=== PATIENT | female | born 1955 | race Caucasian/White ===

== ENCOUNTER → 2017-05-13 | Outpatient (CLI) | payer BC ==
--- NOTE | 2017-05-13 16:07 | RAD ---
EXAM DESCRIPTION: Lumbar Spine 3 Views CLINICAL HISTORY: LUMBAR NEURITIS COMPARISON: None Available. TECHNIQUE: AP/lateral/coned-down lateral FINDINGS: Mild rightward scoliotic curvature of the lower thoracic and lumbar spine is seen. On lateral view, slight retrolisthesis of L4 on L5 and L5 on S1 is noted thought to be degenerative. Frontal view shows intact pedicles and transverse processes. Sacrum appears intact with normal SI joints. Bones appear mildly osteopenic. Lateral view shows no vertebral compressions. Disc height mildly narrowed at L4-5 and L5-S1 with anterior spurring. No focal destructive lesion. IMPRESSION: Mild degenerative changes in the lower lumbar spine as described with mild rightward scoliosis. Electronically signed by: Salomón Casillas MD 05/13/2017 4:06 PM [facility]
== END ==
LOC: RAD 14:02
PROVIDERS: ATTEND Chiropractor
DX: M54.16 Radiculopathy, lumbar region (principal)

== ENCOUNTER → 2017-05-17 | Outpatient (CLI) | payer BC ==
--- NOTE | 2017-05-17 10:19 | MRI ---
MRI OF LUMBAR SPINE WITHOUT INTRAVENOUS CONTRAST HISTORY: Right hip pain COMPARISON: Radiographs of lumbar spine from May 13, 2017 TECHNIQUE: Routine MRI protocol for lumbar spine without intravenous contrast administration. FINDINGS: Maintained bony alignment in lumbar spine. Vertebral heights are maintained without compression injury. No focal spondylolysis nor discernible spondylolisthesis. Marrow signal characteristics are mildly heterogeneous without concerning edema to indicate focal injury, inflammation or marrow infiltration. Conus terminates at superior L1 level. Cauda equina nerve roots are unremarkable in appearance without abnormal tethering. No paraspinal soft tissue abnormality is identified in the lumbar region. At T12-L1, disc height is maintained. Central canal and neuroforamen bilaterally are patent. At L1-2, disc height is maintained. Central canal and neuroforamen bilaterally are patent. At L2-3, disc height is maintained. Minimal annular disc bulges associated with posterior disc protrusion or extrusion which probably but minimally efface the ventral thecal margin. There is less than 20% central canal stenosis. Facet arthropathy contributes to less than 20% neural foraminal stenosis bilaterally, without impact on either exiting nerve root. At L3-4, disc height is maintained. Central canal is patent. Facet arthropathy contributes to less than 20% neural foraminal stenosis bilaterally without impact on either exiting nerve root. At L4-5, disc height is reduced by 25%. Tiny focus of signal abnormality along the posteriorly extruded discs consistent with annulus fibrosis tear. Posterior disc extrusion broadly minimally flatten the ventral thecal margin and contribute to less than 20% central canal stenosis. Facet arthropathy contributes to 30% neural foraminal stenosis bilaterally. At L5-S1, disc height is maintained. Posterior disc protrusion does not abut the ventral thecal margin. Central canal and neuroforamen bilaterally are patent. IMPRESSION: 1. No acute bony injury identified in lumbar spine 2. Minimal to mild degenerative disc disease in several levels, with a tiny focus of annulus fibrosis tear along the posterior disc margin at L4-5 level. 3. No significant central canal stenosis in the lumbar region. 4. 30% or less neuroforaminal stenosis in several levels secondary to facet arthropathy Electronically signed by: Marc Galvez MD 05/17/2017 10:18 AM ENDOSCOPY REGISTERED NURSE
== END ==
LOC: MRI 08:42
PROVIDERS: ATTEND Nurse Practitioner Acute Care
DX: M25.559 Pain in unspecified hip (principal)

== ENCOUNTER → 2017-05-23 | Outpatient (CLI) | payer BC | LOC: GMAB 14:28 | PROVIDERS: ATTEND Family Medicine | DX: Z00.00 Encounter for general adult medical examination without abnormal findings (principal) ==

== ENCOUNTER → 2017-05-28 | Outpatient (CLI) | payer BC ==
--- NOTE | 2017-05-28 14:19 | CT ---
CT OF CHEST WITHOUT INTRAVENOUS CONTRAST HISTORY:COUGH COMPARISON: None TECHNIQUE: Routine chest CT protocol without intravenous contrast administration. Image reformations performed in coronal and sagittal planes. Imaging was performed with automated exposure protocol to minimize radiation dose. FINDINGS: Lungs are well aerated bilaterally. Mild centrilobular emphysematous changes in both upper lungs. Highly spiculated soft tissue density or mass is identified in left lower lobe measuring 4.3 x 3.8 cm in orthogonal span. A few small ill-defined nodules also situated nearby. No other concerning mass in remainder of either lung. No pneumothorax, airspace consolidation, bronchiectasis nor pleural effusion in either lung. Central tracheobronchial tree is unremarkably patent. Several small mediastinal lymph nodes incidentally noted. Cardiac dimensions are within normal limits. No pericardial effusion. Thoracic aorta is normal in caliber without aneurysmal dilatation. Thoracic bony structures are intact with unremarkable alignment. Limited visualization of upper abdomen is unremarkable. IMPRESSION: 1. Large spiculated and highly concerning mass in left lower lobe of lung. Its appearance is less consistent with airspace disease. 2. No pathologic thoracic lymphadenopathy. Electronically signed by: Marc Galvez MD 05/28/2017 2:19 PM [facility]
== END ==
LOC: CT 10:57
PROVIDERS: ATTEND Family Medicine
DX: R05 Cough (principal)

== ENCOUNTER → 2017-06-06 | Outpatient (CLI) | payer BC ==
--- NOTE | 2017-06-07 08:38 | NM ---
EXAM DESCRIPTION: Bone Scan, 3Phase CLINICAL HISTORY: 62 years, Female, SOLITARY PULMONARY NODULE, pain in the left thigh, right lower extremity and right buttock RADIOPHARMACEUTICAL: 28.3 mCi technetium 99m MDP FINDINGS: 2.5 hours after IV administration of radiopharmaceutical, AP and PA images of the entire skeleton were obtained for whole body bone scan. Frontal view shows normal radionuclide activity in the upper extremities, thorax, calvarium and spine. Low position of the right kidney may be renal ptosis. There is increase activity in the region of the right SI joint on the AP and PA views. Findings would suggest unilateral sacroiliitis. CT or MRI of the pelvis may be helpful. Patient and x-ray of the pelvis May 29, 2017 which showed mild right SI joint sclerosis compared to the left. Intense increased activity is seen in the anteromedial mid left femur. Long linear eccentric lesion may indicate secondary involvement of the bone by an adjacent soft tissue lesion (saucerization). Primary subperiosteal bone lesion is possible. Differential considerations might include subperiosteal infection, osteoid osteoma or stress fracture. MRI of the thigh might be considered for further evaluation in addition to x-ray images of the left femur. IMPRESSION: Increased activity in the region of the right SI joint suggesting sacroiliitis. Eccentric increased activity in the medial mid left femur. Correlate with x-ray and MRI findings. Electronically signed by: Salomón Casillas MD 06/07/2017 8:37 AM CDT
== END ==
LOC: NM 09:27
PROVIDERS: ATTEND Family Medicine
DX: R91.1 Solitary pulmonary nodule (principal); R05 Cough; M54.31 Sciatica, right side
CPT/HCPCS: 78315; A9503

== ENCOUNTER → 2017-06-10 | Outpatient (CLI) | payer BC ==
--- NOTE | 2017-06-11 08:40 | MRI ---
EXAM DESCRIPTION: MRI left femur CLINICAL HISTORY: Mid thigh pain radiating medially. Palpable mass on the top of the thigh. Abnormal bone scan. Emphysema with lung mass consistent with lung carcinoma on recent chest CT COMPARISON: CT chest 05/28/2017. Bone scan 06/06/2017 TECHNIQUE: Multiplanar, multisequence MR images of the left thigh/femur FINDINGS: Neoplastic bone lesion involving the medial left femoral diaphysis with the epicenter cortical/subperiosteal extending into the soft tissues primarily. Ovoid mass lesion 4.7 cm craniocaudal by 3.6 cm anteroposterior by 2.7 cm transverse. The lesion involves the cortex, medial half of the femoral diaphysis cortex with a scalloped morphology and associated surrounding periostitis. Region of medullary marrow edema in the diaphysis spanning about 7.2 cm craniocaudal. Extensive surrounding soft tissue edema mostly in the quadriceps and adductor muscles immediately surrounding the tumor There are no other bony lesions included in the [id number] throughout the femur or in the pelvis There are no other soft tissue mass lesions or adenopathy IMPRESSION: Neoplastic mass lesion involving the medial left femoral diaphysis, cortical/subperiosteal epicenter. This is likely a metastatic lesion in light of the patient's known left lower lobe spiculated lung lesion consistent with carcinoma. There are no other lesions seen on bone scintigraphy or included in the [id number]. Primary osseous neoplasm is another possibility, although considered less likely. Electronically signed by: Ace Solares MD 06/11/2017 8:39 AM CDT
== END ==
LOC: MRI 15:04
PROVIDERS: ATTEND Family Medicine
DX: D49.2 Neoplasm of unspecified behavior of bone, soft tissue, and skin (principal)

== ENCOUNTER → 2017-06-11 | Outpatient (CLI) | payer BC ==
--- NOTE | 2017-06-11 17:00 | CT ---
EXAM DESCRIPTION: Abdomen/Pelvis w/wo Contrast: Computed Tomography. CLINICAL HISTORY: D49.2. Lung mass. Mass in the left femur. COMPARISON: MRI scan of the left femur 06/10/2017. Total body bone scan 06/06/2017. CT scan of the chest without contrast 05/28/2017. TECHNIQUE: Spiral-axial scans at 5.0 mm intervals through the abdomen and pelvis before and after standard dose nonionic IV contrast. No oral contrast. Coronal and sagittal 2.0 mm reconstructions. 5 mm Delayed helical-axial scans, liver through the pubic symphysis. No adverse reactions. Total Exam DLP 678.96 mGy - cm. This exam was performed according to our departmental CT dose-optimization program which includes automated exposure control, adjustment of the mA and/or kV according to patient size and/or use of iterative reconstruction technique; to reduce radiation dose to as low as reasonably achievable (ALARA). FINDINGS: Lung bases and pleura: Scarring bilateral bases and centrilobular small blebs. Liver, Stomach, Spleen, Adrenal Glands: 5 mm helical subcapsular anterior right hepatic nonenhancing object appears the same on all 3 scans. Too small to determine Hounsfield units. Calcifications posterior spleen. Stomach and adrenal glands unremarkable. Pancreas, Gallbladder, Ducts: Gallbladder visualized. No definite dilation but pancreatic duct visualized. Pancreatic head slightly prominent but could be part of the duodenum. Body and tail are unremarkable. Kidneys and Ureters: Negative. Mesentery: Decreased due to patient body habitus. No free air or free fluid. Aorta: Moderate atherosclerotic calcification minimal distal luminal narrowing. Small Bowel: Contains gas and fluid with small air-fluid levels and minimal distention distally. Terminal Ileum/Cecum: Normal caliber of the TI. Cecum distended with fecal matter. Appendix abutting the posterior lateral cecum and normal caliber. Normal density of the surrounding fat. Colon: Redundancy of the sigmoid colon with diverticula. Minimal gaseous distention of the proximal and mid colon but no obstruction. Pelvic Organs: No radiodense stones in the urinary bladder. Ossifications in the pelvis. Uterus in normal position and unremarkable. Minimal fluid in the cul-de-sac. Spine and Bony Pelvis: Lytic lesion measuring 3.6 cm in the craniocaudal axis, in the right iliac wing, with soft tissue component and mass effect on the right gluteus muscles. The capsule of the mass shows minimal enhancement. There appears to be invasion of the right SI joint by the lesion with erosion through the iliac wall. Transverse measurement of the mass is 3.1 x 2.9 cm. Dextroscoliosis of the lumbar spine with bulging L4-5 and L5-S1 discs. The remaining osseous structures included on the study shows no evidence of abnormal sclerosis or destruction. Abdominal Wall/Back Soft Tissues: Unremarkable. IMPRESSION: 1. Lytic lesion in the right iliac bone with soft tissue mass extending through the cortex and exhibiting mass effect on the right gluteus muscles. Lytic area measures 3.6 cm craniocaudally. There appears to be invasion of the right SI joint with erosion of the iliac subchondral bone. This is most likely a metastatic lesion. No other bony destructive or lytic lesions. 2. 5 mm subcapsular right hepatic lobe lesion appears the same on all 3 phases and may represent a small cyst. Too small to determine Hounsfield units. 3. Sigmoid diverticulosis with no evidence of complications. Electronically signed by: Blaise Marte MD 06/11/2017 4:59 PM CDT
== END ==
LOC: CT 14:31
PROVIDERS: ATTEND Family Medicine
DX: D49.2 Neoplasm of unspecified behavior of bone, soft tissue, and skin (principal); K57.30 Diverticulosis of large intestine without perforation or abscess without bleeding

== ENCOUNTER → 2017-10-04 | Outpatient (CLI) | payer BC ==
--- NOTE | 2017-10-04 17:14 | CT ---
EXAM DESCRIPTION: CT ABDOMEN AND PELVIS WITHOUT AND WITH CONTRAST CLINICAL HISTORY: C79.51 COMPARISON: CT abdomen and pelvis June 11, 2017, CT chest May 28, 2017 TECHNIQUE: CT of the abdomen and pelvis are performed prior to and during IV bolus administration of 100 mL of Isovue 300. Oral contrast media is administered as well. FINDINGS: CT abdomen The lung bases are clear of infiltrate. Liver is normal in size and parenchymal appearance on the precontrast images. Spleen, pancreas, and kidneys are unremarkable. No kidney stones. After IV contrast, repeat helical scanning through the upper abdomen shows thickened left adrenal gland which could be a mass measuring 2.4 x 2.1 cm. Myelolipoma is suspected with some fatty areas. This appears unchanged from previous study. Tiny cyst in the anterior liver near the junction of the right and left lobes 4 mm. This is unchanged compared to previous study. Otherwise normal enhancement of liver spleen and kidneys and pancreas. There is no lymphadenopathy, inflammation, or free fluid observed. CT pelvis Lytic bone lesion in the right ilium has an exophytic soft tissue component and measures 3.4 x 3 cm by cm. This enhances much less than on the previous study. This previously measured approximately 2.9 x 3.7 cm. This is evidently stable to slightly smaller. Tumor extends into the right SI joint and into the right buttock soft tissues. No definite change. Delayed images show positive enhancement of the urinary collecting systems bilaterally. No inflammation is seen around the cecum or terminal ileum or sigmoid colon. Appendix is not definitely seen. No stones are seen in the distal ureters or bladder. Normal pelvic small bowel loops. Postcontrast images show normal enhancement of the pelvic vessels. Uterus appears normal. IMPRESSION: Slightly decreased size of lytic lesion in the right ilium with markedly decreased enhancement compared to the previous study. These findings suggest improvement. Stable left adrenal lesion probably benign. This exam was performed according to our departmental dose-optimization program, which includes automated exposure control, adjustment of the mA and/or kV according to patient size and/or use of iterative reconstruction technique. Total DLP equals 789.89. Electronically signed by: Saolmón Casillas MD 10/04/2017 5:13 PM CDT
--- NOTE | 2017-10-05 05:59 | CT ---
EXAM DESCRIPTION: Chest w/Contrast CLINICAL HISTORY: 62 years, Female, C34.90, lung cancer, bone metastases COMPARISON: Previous CT of the chest from May 28, 2017 TECHNIQUE: Thin-section noncontrast axial CT images are obtained according to our protocol. Reconstructed MPR images are created and reviewed as well. Nonionic iodinated IV contrast was administered. FINDINGS: Lungs: Right apical pleural-parenchymal scarring is seen. Subpleural scarring is seen in the posterior apices bilaterally. Extensive centrilobular emphysematous changes are present in the lungs are hyperexpanded. There is a mass of the left lower lobe of the lung which measures 3.8 x 4.2 x 2.7 centimeters consistent with primary bronchogenic carcinoma. This involves the superior segment left lower lobe extending to the posterior aspect of the upper left major fissure. Previously this mass measured approximately 3.8 x 4.4 x 2.2 cm and appears essentially stable in size. There is tumor infiltration along the left lower lobe pulmonary artery. Normal enhancement of the aorta and pulmonary arteries. No aortic aneurysm or pulmonary embolism. Heart is prominent. Small amount of pericardial fluid is present. Bone window images show osteopenic appearance of the spine. No focal bony destructive lesion. Numerous small nodules in the lungs are present which appear to be new. These could be tiny metastases or new areas of granulomatous infection. Follow-up may be helpful. Small nodules are seen in the periphery of the upper lobes, along the right major fissure and in the peripheral lower lobes. Most are too small to accurately measure. There is a nodule in the right middle lobe lateral segment anteriorly which measures 5 mm. This appears to be new. Other nodules are in the 1 to 3 mm size range. Clustered 3 mm nodules are seen in the left lower lobe. Tiny metastases are thought most likely. Coronal and sagittal reformatted images confirm the findings. Mediastinum: Lymph nodes are normal in size. Normal vascular contours. Heart size is normal with no pericardial effusion. Chest wall/axilla: No mass or adenopathy. Breast tissue appears nodular. Correlate with mammographic and sonographic findings. Axillary lymph nodes are small. Lower neck/supraclavicular: No mass or adenopathy. Upper abdomen: See separate report for CT abdomen and pelvis. IMPRESSION: Spiculated mass in the superior segment left lower lobe essentially unchanged in size, consistent with primary bronchogenic carcinoma. Multiple small bilateral pulmonary nodules in the 1 to 5 mm size range consistent with metastases. This exam was performed according to our departmental dose-optimization program, which includes automated exposure control, adjustment of the mA and/or kV according to patient size and/or use of iterative reconstruction technique. Total DLP equals 789.89 mGycm. Electronically signed by: Salomón Casillas MD 10/05/2017 5:58 AM CDT
== END ==
LOC: CT 13:30
PROVIDERS: ATTEND Internal Medicine Hematology & Oncology
DX: C34.90 Malignant neoplasm of unspecified part of unspecified bronchus or lung (principal); C79.51 Secondary malignant neoplasm of bone

== ENCOUNTER → 2017-12-09 | Outpatient (CLI) | payer BC ==
--- NOTE | 2017-12-09 16:36 | CT ---
EXAM DESCRIPTION: Chest w/Contrast : Computed Tomography. CLINICAL HISTORY: MALIGNANT NEOPLASM OF LUNG. Follow-up. Taking chemotherapy. COMPARISON: CT scan of the chest 10/04/2017. TECHNIQUE: Spiral-axial scans at 5.0 x 5.0 mm intervals through the lungs and thorax without IV contrast. 2.5 mm lung algorithm axial reconstructions. Coronal and sagittal 2.0 mm Mm reconstructions. No adverse reactions. Total Exam DLP: 209.01 mGy-cm. This exam was performed according to our departmental dose-optimization program which includes automated exposure control, adjustment of the mA and/or kV according to patient size and/or use of iterative reconstruction technique; to reduce radiation dose to as low as reasonably achievable (ALARA). FINDINGS: Mass in the superior segment of the left lower lobe has decreased in size since the prior study. Measures 2.0 x 1.8 cm in the axial plane, and 1.1 cm craniocaudally. Prior dimensions were 3.7 x 2.8 cm in axial plane and 2.2 cm craniocaudal. Margins remain spiculated. There are also extensions to the nearby pleura. No calcification. Stable focal thickening posteriorly to the mass in the superior left major fissure. Bilateral apical pleural thickening more on the right than the left. Bilateral hyperinflation with diffuse small centrilobular type blebs more prevalent in the upper lung vargas than the lower lung vargas. Bohler in the base of the right upper lobe is stable. No new nodules infiltrates bilaterally. No pleural effusion or pneumothorax. Normal contrast enhancement thyroid gland. No soft tissue masses are enlarged lymph nodes in the mediastinum or fe. No soft tissue masses in the chest wall or axilla or base of the neck. No fluid or soft tissue mass in the subarticular diaphragmatic peritoneum. Prominence of the left adrenal gland is stable. Spondylosis at multiple levels of the midthoracic spine. Minimal levoscoliosis. No bone destruction or blastic lesions. No other significant osseous lesions. IMPRESSION: 1. Malignant lesion with spiculated margins in the superior segment of the left lower lobe abutting the major fissure has decreased significantly in size since the prior CT scan of the chest 10/04/2017. Bilateral air trapping and centrilobular emphysema is again noted. No new masses or infiltrates. Consider follow-up chest CT scan with and without IV contrast in 3 month interval. Electronically signed by: Blaise Marte MD 12/09/2017 4:34 PM CDT
== END ==
LOC: CT 14:00
PROVIDERS: ATTEND Internal Medicine Hematology & Oncology
DX: C34.90 Malignant neoplasm of unspecified part of unspecified bronchus or lung (principal)

== ENCOUNTER → 2017-12-11 | Outpatient (CLI) | payer BC ==
--- NOTE | 2017-12-11 12:24 | CT ---
EXAM DESCRIPTION: Head w/wo Contrast: Computed Tomography. CLINICAL HISTORY: Headache. JAW PAIN, recent dental procedure. Cancer left lung but responding to therapy. COMPARISON: CT scan of the maxillofacial bones without and with IV contrast on the same visit. TECHNIQUE: Spiral -axial scans through the head and brain at 2.5 mm intervals, without and with nonionic IV contrast. Coronal and sagittal 2.0 mm reconstructions. No adverse reactions. Total Exam DLP: 752.48 mGy-cm. This exam was performed according to our departmental CT dose-optimization program which includes automated exposure control, adjustment of the mA and/or kV according to patient size and/or use of iterative reconstruction technique; to reduce radiation dose to as low as reasonably achievable (ALARA). FINDINGS: A lobulated mass density, more dense than the jean matter, is visualized in the posterior right occipital lobe parasagittal location, abutting the posterior falx. Almost uniform enhancement in this mass, which measures 3.3 cm AP, 2 cm transverse, and approximately 2.3 cm craniocaudal. A cystic component anteriorly and laterally to the mass with minimal peripheral enhancement measures 2.6 x 2.2 cm. No hemorrhage. Low-density in the white matter representing vasogenic edema extends to the vertex of the posterior right occipital lobe and anteriorly to the level of the occipital horn, right lateral ventricle with minimal mass effect. There is mass effect on cortical sulci of the occipital lobe from the base to the vertex. No midline shift. No subfalcine herniation. A vague area of low-density is noted in the medial posterior right cerebellar hemisphere measuring 1.3 x 0.8 cm transverse plane and 1 cm craniocaudal. No definite enhancement is noted. No hemorrhage. At a lower level in the posterior right cerebellar hemisphere abutting the dura is a small 8 mm spherical enhancing nodule, versus vascular structure. No midline shift and no tonsillar herniation. Normal contrast enhancement and normal jean-white matter differentiation right cerebral hemisphere. No hydrocephalus. No intra-axial or extra-axial hemorrhage. No unusual enhancement in the [place] of [place]. IMPRESSION: 1. 3 cm lobulated enhancing mass with a 2.6 cm cystic component in the posterior right occipital lobe, parasagittal location, which is most likely a metastasis. Mass effect and vasogenic white matter edema. No midline shift, no hemorrhage or subfalcine herniation. 2. 1.3 cm nonenhancing left cerebellar mass or smaller nonenhancing mass with vasogenic edema. This could represent a second metastatic focus or region of ischemia. No hemorrhage. 3. Nodular area of enhancement abutting the right cerebellar hemisphere could represent a vascular structure or small focus of metastasis. CRITICAL COMMUNICATION: The critical value was discussed directly by phone with Dr. Arya Hong at approximately 1100 hours, on 12/11/2017. Electronically signed by: Blaise Marte MD 12/11/2017 12:22 PM CDT
--- NOTE | 2017-12-11 13:01 | CT ---
EXAM DESCRIPTION: Maxillofacial w/wo Contrast: Computed Tomography. CLINICAL HISTORY: JAW PAIN. Headaches. Recent dental procedure. Left lung cancer, but responding to therapy. COMPARISON: CT scan of the head without and with IV contrast. TECHNIQUE: Spiral, axial 2.5 x 2.5 mm scans through the maxillofacial bones without and with IV contrast. Coronal and sagittal 2.0 reconstructions. Total Exam DLP: 624.55 mGy-cm. This exam was performed according to our departmental CT dose-optimization program which includes automated exposure control, adjustment of the mA and/or kV according to patient size and/or use of iterative reconstruction technique; to reduce radiation dose to as low as reasonably achievable (ALARA). FINDINGS: Tooth #3, the right first upper molar, is absent. Enhancement is noted in the tooth bed with minimal soft tissue swelling. Possibly small soft tissue mass, with expansion of the tooth bed, and absent medial and lateral cortical turner which appear to be eroded. Sensitivity is limited due to scatter artifact from the metallic dental device is The right second upper molar (#2) has a crown and the right upper third molar/wisdom tooth (1) has been removed. The right upper second premolar (4) appears intact but there is radiolucency in the bone between this tooth and the first premolar (5). Right mandibular wisdom tooth has been removed and left mandibular wisdom tooth is still present. Paranasal sinuses are unremarkable. Mastoid air cells are well-aerated. No blastic or lytic bone lesions are noted in the facial bones or skull base. No enhancing soft tissue mass or mass effect in the included abdominal, facial areas or neck. IMPRESSION: 1. Right first maxillary molar (#3) is absent, and there is soft tissue mass, with enhancement, in the tooth bed with expansion and erosion of the lateral more than medial maxillary cortex but not the floor of the maxillary sinus. Correlate with location of recent dental procedure. Suggestion of bone erosion between right maxillary teeth 4 and 5. 2. No other bony destruction or sclerosis seen. No soft tissue mass in the neck or face. Electronically signed by: Blaise Marte MD 12/11/2017 1:00 PM CDT
== END ==
LOC: CT 08:30
PROVIDERS: ATTEND Family Medicine
DX: C34.02 Malignant neoplasm of left main bronchus (principal); G93.9 Disorder of brain, unspecified

== ENCOUNTER → 2018-03-26 | Outpatient (CLI) | payer BC ==
--- NOTE | 2018-03-26 20:15 | CT ---
EXAM DESCRIPTION: Chest w/Contrast : Computed Tomography. CLINICAL HISTORY: 63 years Female BRAIN METS COMPARISON: CT scan of the chest with IV contrast 12/09/2017. CT scan of abdomen and pelvis on this visit. TECHNIQUE: Spiral-axial scans at 5 x 5 mm intervals through the lungs and thorax with IV contrast. 2.5 x 5 mm lung algorithm axial reconstructions. Coronal and sagittal 2.0 Mm reconstructions. No adverse reactions. Total Exam DLP: 406.78 mGy-cm. This exam was performed according to our departmental dose-optimization program which includes automated exposure control, adjustment of the mA and/or kV according to patient size and/or use of iterative reconstruction technique; to reduce radiation dose to as low as reasonably achievable (ALARA). Nodule measurements under 10 mm are given as mean value of 3 axes diameters. FINDINGS: Lungs and large airways: Again noted is a 2.2 x 1.9 cm mass (transverse) in the superior segment of the left lower lobe which is abutting the left major fissure and displacing it superiorly. Craniocaudal dimension is 1.15 cm. Spiculation is again noted from a majority of the tumor margin. Compared to the prior study, 4 adjacent masses have developed within the fissure,, or around the main mass, 2 anteriorly , 2 superiorly and medially. These masses are 1 cm or less, with lobulated margins. Again noted are emphysematous changes bilaterally in a centrilobular distribution more prominent in the upper lobes. Stable scarring right apex. Stable bulla in the base of the right upper lobe. New triangular shaped groundglass nodule measuring 6 mm in the lateral posterior right lower lobe, axial series 8, image 92. Partially seen on the prior study on the sagittal view, but current shape suggests para fissural nodule or scar. Pleural spaces: Bilateral focal thickening. Bilateral apical thickening more on the right. No effusion bilaterally or pneumothorax. Stable since the prior study. Mediastinum and Roxanne: Soft tissue mass partially enhancing in the anterior mediastinum abutting the anterior recess anterior to the innominate vein and above the level of the aortic arch, measuring 1.4 cm short axis. 7 mm short axis on the prior study. No new masses in the mid or posterior mediastinum or bilateral roxanne, due to high-density of IV contrast, it is difficult to discriminate soft tissues in the mid and posterior mediastinum.. The most medial of the satellite nodules mentioned previously is abutting the left lower lobe pulmonary artery. Great vessels and Heart: Atherosclerotic calcifications again noted with coronary artery calcification. Stable since the prior study. Soft tissues of neck base, axillae, and chest wall: Unremarkable. Stable since the prior study Upper abdomen: Please see abdominal pelvic CT report. Osseous structures: Multiple levels of disc space narrowing and endplate spurs. Gas formation in some of the disks. No blastic or lytic lesions. IMPRESSION: 1. At least 4 nodules have developed around the residual tumor mass in the superior segment of the left lower lobe, abutting the major fissure, since the prior study. All are approximately 1 cm or less in greatest diameter Some of these nodules appear to be within the major fissure, and one may be a lymph node enlarging medially. These are interpreted to be satellite tumor nodules, indicating progressive, local neoplastic disease. 2. Enlarging partially enhancing nodule in the anterior mediastinum anterior to the innominate vein, most likely a reactive metastatic lymph node, also indicating progressive metastatic disease. 3. Partially solid or groundglass triangular shaped nodule in the subpleural lateral right lower lobe not seen on the prior study, more likely to represent scar or perifissural node, 6 mm diameter. 4. Consider follow-up CT scan with IV contrast 3 month interval, and/or PET CT scan to evaluate for other sites of metastatic disease. Electronically signed by: Blaise Marte MD 03/26/2018 8:13 PM SANITARIAN AIDE
--- NOTE | 2018-03-26 20:38 | CT ---
EXAM DESCRIPTION: Abdomen/Pelvis w/Contrast: Computed Tomography. CLINICAL HISTORY: 63 years Female BRAIN metastasis. Local spread of tumor in left lung. Possible mediastinal metastases. COMPARISON: CT scan of the chest and thorax on this visit. CT scan of abdomen and pelvis 10/04/2017. TECHNIQUE: Spiral-axial scans at 5 x 5 mm intervals through the abdomen and pelvis, after nonionic IV contrast and water-soluble oral contrast. Coronal and sagittal 2.0 mm reconstructions. Delayed scans, liver through the pelvis. Axial-spiral 5 mm. No adverse reactions. Total Exam DLP: 406.78 mGy-cm. This exam was performed according to our departmental dose-optimization program which includes automated exposure control, adjustment of the mA and/or kV according to patient size and/or use of iterative reconstruction technique; to reduce radiation dose to as low as reasonably achievable (ALARA). FINDINGS: Lung bases and pleura: Please see chest CT scan report on this visit. Liver, Stomach, Spleen, Adrenal Glands: Subcentimeter focal circumscribed nonenhancing region in the left liver subcapsular stable. Stable appearance of left adrenal gland enlargement. Gas in the distal duodenum. Pancreas, Gallbladder, Ducts: Gallbladder contracted. Duct not dilated. Pancreas negative. Kidneys and Ureters: Unremarkable. Mesentery: Difficult to evaluate in some regions due to body habitus. Aorta: Moderate atherosclerotic calcification distally with narrowing of the lumen is stable. No para-aortic mass. Small Bowel: Oral contrast in the distal small bowel. Fluid and small air bubbles proximally with no definite distention. Terminal Ileum/Cecum: Minimal distention of the cecum by gas and oral contrast and fluid. Appendix not seen. Normal density of the surrounding fat. Colon: Diffuse fecal material and contrast in the colon with redundant transverse colon which enters the upper mid pelvis. Less distention in the distal transverse colon. Mostly fecal material without oral contrast in the distal descending colon and rectosigmoid. Minimal redundancy of the sigmoid colon. Pelvic Organs: Uterus anteverted. Bladder not distended. No significant amount of fluid in the cul-de-sac. Most of the pelvis contains bowel. Spine and Bony Pelvis: Large lytic lesion in the right iliac bone at the level of the SI joint is no longer visualized, but contains heterogeneous marrow, with sclerotic margin. No cortical destruction, inferior SI joint is intact. No soft tissue mass abutting the iliac bone. Degenerative changes again noted in the anterior acetabulum facets bilaterally. More on the left. No new lytic or blastic bone lesions. Abdominal Wall/Back Soft Tissues: Unremarkable. IMPRESSION: 1. Large lytic lesion in the inferior posterior right iliac bone involving part of the SI joint seen on the prior study with soft tissue mass is no longer present with heterogeneous marrow now seen in the former lesion with sclerotic margins and no cortical destruction. No new lytic or blastic bone lesions bilaterally. 2. No abnormal fluid or soft tissue mass. No fatty stranding or fascial thickening. No new focal lesions in the abdominal organs. 3. Constipation of the colon with redundant transverse colon and sigmoid. No definite bowel obstruction or free air. Electronically signed by: Blaise Marte MD 03/26/2018 8:37 PM [employer]
== END ==
LOC: CT 10:56
PROVIDERS: ATTEND Internal Medicine Hematology & Oncology
DX: C34.32 Malignant neoplasm of lower lobe, left bronchus or lung (principal); C79.31 Secondary malignant neoplasm of brain; K59.00 Constipation, unspecified

== ENCOUNTER 2019-08-18 09:43 | Emergency (ER) | payer BC ==
--- NOTE | 2019-08-18 10:13 | ED.PDOC ---
History of Present Illness - General Chief Complaint: Respiratory Problem Stated Complaint: Short of breath Time Seen by Provider: 08/18/19 10:09 Source: patient, family Exam Limitations: other - mental status change Additional Information: The patient is a 64 year old who was brought to the ED via EMS for shortness of breath. History is limited as the patient is somewhat confused and she had her are very poor historians. It appears that she has a primary lung cancer with metastasis to the brain and pelvic bones. She is currently undergoing chemotherapy at [facility]. She continues to smoke daily, around 1/2 pack. The patient's states that "I just couldn't get her to do anything" today. They had been visiting a new property and on returning home the patient was insistent that she walk to his workplace and he couldn't convince her to get back into his truck or to go into the house. He called EMS because he felt like she was more confused than usual. He notes that she has become intermittently more confused over he past week. Also states that she has developed worsning non-productive cough. No fevers. No knownn sick contacts. The patient also called EMS saying that she was feeling short of breath and having hair loss. The patient states that she has been feeling short of breath since the start of her chemotherapy and that she feels fine now and wants to go home. Her reports that she is at her baseline currently. - History of Present Illness Timing/Duration: momentarily, resolved prior to arrival Severity: mild Allergies/Adverse Reactions: Allergies NO KNOWN ALLERGY Allergy (Verified 08/18/19 10:10) Home Medications: Ambulatory Orders HYDROcodone 10MG/APAP 325MG [[place] 10/325] 1 tab PO PRN 08/18/19 LORazepam [Ativan] 1 mg PO BID PRN 08/18/19 Meloxicam 15 mg PO DAILY 08/18/19 Methocarbamol 750 mg PO PRN 08/18/19 Ondansetron [Ondansetron Odt] 8 mg PO PRN 08/18/19 Oxycodone HCl [Oxycodone Hydrochloride E] 10 mg PO BID 08/18/19 Review of Systems - Review of Systems Constitutional: States: no symptoms reported EENTM: States: no symptoms reported Respiratory: States: short of breath - resolved Cardiology: States: no symptoms reported Gastrointestinal/Abdominal: States: no symptoms reported Genitourinary: States: no symptoms reported Musculoskeletal: States: no symptoms reported Skin: States: no symptoms reported Neurological: States: no symptoms reported Endocrine: States: no symptoms reported Hematologic/Lymphatic: States: no symptoms reported All other Systems: No Change from Baseline Past Medical History (General) - Patient Medical History Hx Seizures: No Hx Stroke: No Hx Dementia: No Hx Asthma: No Hx of COPD: No Hx Cardiac Disorders: No Hx Congestive Heart Failure: No Hx Pacemaker: No Hx Hypertension: No Hx Thyroid Disease: No Hx Diabetes: No Hx Gastroesophageal Reflux: No Hx Renal Disease: No Hx Cancer: Yes Hx of HIV: No Hx Hepatitis C: No Hx MRSA: No - Vaccination History Hx Tetanus, Diphtheria Vaccination: No Hx Influenza Vaccination: No Hx Pneumococcal Vaccination: No - Social History Hx Tobacco Use: Yes Cigarettes Packs Per Day: 1 Hx Alcohol Use: No Family Medical History - Family History Mother Family History: Unknown Living Status: Unknown Physical Exam - Physical Exam General Appearance: Emaciated, Frail, No apparent distress Ears, Nose, Throat: hearing grossly normal, normal ENT inspection Neck: non-tender, full range of motion Respiratory: chest non-tender, lungs clear, normal breath sounds, no respiratory distress, no accessory muscle use Cardiovascular/Chest: normal peripheral pulses, regular rate, rhythm, no edema, no gallop, no JVD, no murmur Gastrointestinal/Abdominal: non tender, soft Extremity: normal range of motion, non-tender, normal inspection, no pedal edema Neurologic: claim adjuster II-XII nml as tested, no motor/sensory deficits, alert, normal mood/affect, oriented x 3 Skin Exam: normal color Lymphatic: no adenopathy Progress - Progress Progress: 08/18/19 11:52 Patient reassessed, workup as above. She appears to have worsening vasogenic edema with possible small hemorrhages as well as left upper lobe pneumonia. Will start vancomycin, cefepime, decadron. Transfer to [facility] 08/18/19 15:[address] Shipley at [facility] who accepts for admission. - Results/Orders Results/Orders: 08/18/19 10:15 EKG STAT 08/18/19 11:51 Cefepime [Maxipime] 2 gm Sodium Chl 0.9% 100Ml Mini-Bag [NS 100ml MINI-BAG+] 100 ml IVPB ONCE Vancomycin HCl Inj 1,000 mg Sodium Chloride 0.9% 250Ml [NS 250ml] 250 ml IVPB ONCE 08/18/19 Lunch Regular Diet Laboratory Results - last 24 hr 08/18/19 08/18/19 08/18/19 10:30 10:30 11:06 WBC 14.8 H RBC 3.74 L Hgb 10.0 L Hct 31.1 L MCV 83.1 MCH 26.7 L MCHC 32.1 L RDW 17.9 H Plt Count 402 H MPV 7.4 Absolute Neuts (auto) 14.10 H Absolute Lymphs (auto) 0.20 L Absolute Monos (auto) 0.40 Absolute Eos (auto) 0.00 Absolute Basos (auto) 0.00 Neutrophils % 95.8 H Lymphocytes % 1.1 L Monocytes % 2.9 Eosinophils % 0.0 L Basophils % 0.2 Sodium 132 L Potassium 4.0 Chloride 100 L Carbon Dioxide 23 Anion Gap 13.0 BUN 14 Creatinine 0.46 L BUN/Creatinine Ratio 30.4 H Random Glucose 110 H Serum Osmolality 265.6 L Calcium 8.6 Total Bilirubin 0.6 AST 15 ALT 13 Alkaline Phosphatase 121 Serum Total Protein 6.0 L Albumin 2.6 L Globulin 3.4 Albumin/Globulin Ratio 0.8 L Urine Color Yellow Urine Appearance Sl cloudy Urine pH 6.0 Ur Specific [place] 1.015 Urine Protein 100 H Urine Glucose (UA) Negative Urine Ketones Negative Urine Blood Trace-lysed H Urine Nitrite Negative Urine Bilirubin Negative Urine Urobilinogen 4.0 H Ur Leukocyte Esterase Negative Urine RBC 3-5 H Urine WBC 3-5 H Ur Epithelial Cells 3-5 Amorphous Sediment 1+ Urine Bacteria 1+ - EKG/XRAY/CT EKG: Sinus, no ST T wave changes Comments: NSR rate 91 right axis deviation, no STEMI Xray Comments: Woresning left upper lobe consolidation Departure - Departure Clinical Impression: Altered mental status Qualifiers: Altered mental status type: disorientation Qualified Code(s): R41.0 - Disorientation, unspecified Metastatic lung cancer (metastasis from lung to other site) Qualifiers: Laterality: left Qualified Code(s): C34.92 - Malignant neoplasm of unspecified part of left bronchus or lung Pneumonia Qualifiers: Pneumonia type: due to unspecified organism Laterality: left Lung location: upper lobe of lung Qualified Code(s): J18.9 - Pneumonia, unspecified organism Time of Disposition: 15:31 Disposition: Transfer to Hospital Condition: Fair Departure Forms: ED Discharge - Pt. Copy, Patient Portal Self Enrollment Referrals: Froilan Fisher MD [Family Provider] - 1-2 Weeks Home Medications: Ambulatory Orders HYDROcodone 10MG/APAP 325MG [[place] 10/325] 1 tab PO PRN 08/18/19 LORazepam [Ativan] 1 mg PO BID PRN 08/18/19 Meloxicam 15 mg PO DAILY 08/18/19 Methocarbamol 750 mg PO PRN 08/18/19 Ondansetron [Ondansetron Odt] 8 mg PO PRN 08/18/19 Oxycodone HCl [Oxycodone Hydrochloride E] 10 mg PO BID 08/18/19
--- NOTE | 2019-08-18 10:50 | RAD ---
EXAM DESCRIPTION: Chest,1 View CLINICAL HISTORY: 64 years Female, shortness of breath COMPARISON: CT chest dated 03/26/2018. TECHNIQUE: AP radiograph of the chest was obtained. FINDINGS: Trachea is midline.The cardiomediastinal silhouette is normal in size. The pulmonary vasculature is within normal limits. Large area of airspace opacification is identified in the left upper lobe. This could represent pneumonia, however underlying mass cannot be completely excluded. In addition there is a 2.3 x 2.4 cm nodule in the retrocardiac region consistent with patient's known mass. IMPRESSION: Large area of airspace opacification is identified in the left upper lobe. This could represent pneumonia, however underlying mass cannot be completely excluded. In addition there is a 2.3 x 2.4 cm nodule in the retrocardiac region consistent with patient's known mass. Electronically signed by: Odette Enciso MD 08/18/2019 10:48 AM CDT
--- NOTE | 2019-08-18 11:08 | CT ---
EXAM DESCRIPTION: Head CLINICAL HISTORY: 64 years Female, Mental Status Change COMPARISON: CT head 2017 TECHNIQUE: Axial images obtained from the skull base to the vertex without intravenous contrast with images. Coronal and sagittal reformations provided. This exam was performed according to our departmental dose-optimization program, which includes automated exposure control, adjustment of the mA and/or kV according to patient size and/or use of iterative reconstruction technique. Time Last Seen Well (If known) for Code Stroke: n/a FINDINGS: Brain Parenchyma, ventricles, meninges, and extra-axial spaces: Large amount of vasogenic edema within the posterior right occipital lobe with indeterminate hypodensity predominantly along the posterior medial aspect of this vasogenic edema near the falx and tentorium. Similar internal hyperdensity is present along the insular cortex posteriorly on the left and near the cortex and superior parietal lobe, both having mild surrounding vasogenic edema. No abnormal extra-axial fluid collection. There is no midline shift or herniation. Unchanged hypodensity within the superficial left cerebellum. Midline. Vascular: Atherosclerosis is within the carotid siphons. Calvarium, paranasal sinuses, mastoids, and orbits: Calvarium intact. Visualized paranasal sinuses and mastoid air cells clear. Orbits unremarkable. IMPRESSION: 1. Increased vasogenic edema in the right parietal occipital lobe but without midline shift or herniation likely from metastasis. 2. Hyperdensity along the posterior medial aspect of the vasogenic edema as described above which may relate to hemorrhage or posttreatment related changes. Similar appearing hypodensity with associated mild edema is present along the insular cortex superior left frontal lobe, which are new from 2017 and may represent additional metastasis. MRI brain with contrast to further evaluate. Alternatively, repeat CT head with contrast may further evaluate as well without direct comparison to 12/11/2017. Electronically signed by: Tavares Mckeon MD 08/18/2019 11:07 AM CDT
[2019-08-18] MEDS ORDERED: DEXAMETHASONE INJ 10 MG/ML VIAL IV ONE (11:51)
[2019-08-18] MEDS ORDERED: CEFEPIME 2 GM in SODIUM CHL 0.9% 100ML MINI-BAG 100 ML IVPB ONE (11:51)
[2019-08-18] MEDS ORDERED: VANCOMYCIN HCL INJ 1,000 MG in SODIUM CHLORIDE 0.9% 250ML 250 ML IVPB ONE (11:51)
[2019-08-18 15:30] VITALS: BP 107/61
[2019-08-18 16:07] VITALS: TEMP 98.5; O2SAT 95
== END 2019-08-18 16:06 | disposition short-term general hospital (02) ==
LOC: ER 09:43
DX: R41.82 Altered mental status, unspecified (principal); J18.9 Pneumonia, unspecified organism; C34.92 Malignant neoplasm of unspecified part of left bronchus or lung; C79.31 Secondary malignant neoplasm of brain; C79.51 Secondary malignant neoplasm of bone; F17.210 Nicotine dependence, cigarettes, uncomplicated
CPT/HCPCS: 36415; 70450; 71045; 80053; 81001; 85025; 93005; J0692; J1100; J3370; J7050